=== PATIENT | female | born 1975 | race Hispanic/Latino ===

== ENCOUNTER 2017-07-30 00:37 | Observation (INO) | payer SELFPAY ==
[~2017-07-30] VITALS: Ht 160 cm; Wt 73.6 kg
[2017-07-30 01:20] LABS: ALBUMIN 4.7 g/dL (3.2-5.0); ALKALINE PHOSPHATASE 99 u/l (38-126); AMYLASE 103 u/l (30-110); ANION GAP 25 (6-22 (CALC)); BILIRUBIN, TOTAL 0.4 mg/dL (0.0-1.4); BUN 23 mg/dL (7-17); BUN/CREATININE RATIO 29 (12-20 (CALC)); CARBON DIOXIDE 19 mmol/l (22-30); CHLORIDE 104 mmol/l (95-108); CREATININE 0.8 mg/dL (0.5-1.0); GFR > 60 ML/MIN (>=60 (CALC)); GFR FOR AFR.AMER. > 60 ML/MIN (>=60 (CALC)); LIPASE 157 u/l (23-300); SGOT/AST 59 u/l (14-36); SGPT/ALT 59 u/l (9-52); SODIUM 144 mmol/l (137-146); TOTAL PROTEIN 8.7 g/dL (6.3-8.2)
--- NOTE | 2017-07-30 02:00 | NUR ---
RECOLLECT DRAWN FOR LAB. PT RESTING. MUCH CALMER.
--- NOTE | 2017-07-30 02:02 | NUR ---
FAMILY AT BEDSIDE
[2017-07-30 02:15] LABS: HEMATOCRIT 32.2 % (37.0-47.0); HEMOGLOBIN 9.7 g/dl (12.0-16.0); IMMATURE GRANULOCYTES 0.5 % (0.0-1.0); MEAN CELL VOLUME 65.1 fL CALC (80.0-100.0); MEAN CORPUSCULAR HGB 19.6 pG CALC (26.0-32.0); MEAN CORPUSCULAR HGB CONC 30.1 g/L CALC (32.0-36.0); NEUT# 15.51 thou/uL (2.00-7.15); RED BLOOD COUNT 4.95 mill/uL (4.20-5.60); RED CELL DISTRI WIDTH 20.5 % (11.5-15.5)
[2017-07-30 03:13] LABS: URINE BILIRUBIN - DIPSTICK NEGATIVE (NEGATIVE); URINE BLOOD DIPSTICK NEGATIVE (NEGATIVE); URINE COLOR YELLOW; URINE GLUCOSE - DIPSTICK NEGATIVE (NEGATIVE); URINE KETONE TRACE mg/dL (NEGATIVE); URINE LEUK ESTERASE NEGATIVE (NEGATIVE); URINE NITRITE - DIPSTICK NEGATIVE (Negative); URINE PH 7.5 (4.5-8.0); URINE PROTEIN - DIPSTICK NEGATIVE (NEG-TRACE); URINE SPECIFIC GRAVITY 1.015; URINE UROBILINOGEN - DIPSTICK 0.2 E.U./dL (0.2)
[2017-07-30 03:16] LABS: URINE CLARITY CLEAR
--- NOTE | 2017-07-30 03:27 | NUR ---
pt drinking powerade. tolerating.
[2017-07-30 04:35] LABS: HEMOGLOBIN 9.1 g/dl (12.0-16.0); IMMATURE GRANULOCYTES 0.5 % (0.0-1.0); MEAN CELL VOLUME 65.2 fL CALC (80.0-100.0); MEAN CORPUSCULAR HGB 19.8 pG CALC (26.0-32.0); MEAN CORPUSCULAR HGB CONC 30.3 g/L CALC (32.0-36.0); NEUT# 13.65 thou/uL (2.00-7.15); RED BLOOD COUNT 4.6 mill/uL (4.20-5.60); RED CELL DISTRI WIDTH 20.1 % (11.5-15.5)
[2017-07-30 05:41] LABS: ALKALINE PHOSPHATASE 73 u/l (38-126); ANION GAP 17 (6-22 (CALC)); BILIRUBIN, TOTAL 0.3 mg/dL (0.0-1.4); BUN 19 mg/dL (7-17); BUN/CREATININE RATIO 32 (12-20 (CALC)); CARBON DIOXIDE 22 mmol/l (22-30); CHLORIDE 109 mmol/l (95-108); CREATININE 0.6 mg/dL (0.5-1.0); GFR > 60 ML/MIN (>=60 (CALC)); GFR FOR AFR.AMER. > 60 ML/MIN (>=60 (CALC)); POTASSIUM 4.2 mmol/l (3.5-5.1); SGOT/AST 43 u/l (14-36); SGPT/ALT 53 u/l (9-52); SODIUM 144 mmol/l (137-146)
[2017-07-30 05:51] LABS: ALBUMIN 3.7 g/dL (3.2-5.0)
--- NOTE | 2017-07-30 06:00 | NUR ---
pt resting. YARITZA. BLOOD CULTURES X 1 DRAWN. RADIOLOGY HERE.
--- NOTE | 2017-07-30 06:43 | NUR ---
RETURNED FROM CT
--- NOTE | 2017-07-30 07:04 | NUR ---
PT UP TO BR. REPORT TO ONCOMING NURSE. NAD. VSS. PENDING ADMISSION.
--- NOTE | 2017-07-30 07:13 | NUR ---
RESTING QUIETLY, AWAITING CT RESULTS AND DISPOSITION, NO NEW CONCERNS VOICED, AT BEDSIDE.
--- NOTE | 2017-07-30 07:44 | NUR ---
Admission Note Report Given to: DAMON PEPPER Transported by: X Wheelchair Stretcher Transported with: X Nurse Transporter X [employer] IV [id number]
--- NOTE | 2017-07-30 07:58 | NUR ---
PT CAME FROM ER VIA WC BY EVGENY POP. BLADE CHANGER IN ROOM FOR STAND BY ASSIST TO SCALE THEN TO BED. ORINETED PT TO CALL LIGHT AND SAFETY PRECAUTIONS REINFORCED. CALL LIGHT IN REACH.
[2017-07-30 08:13] VITALS: BP 90/51
--- NOTE | 2017-07-30 10:50 | NUR ---
ASSESSMENT DONE. RESPS EVEN AND UNLABORED. # 20 RAC THAT APPEARS HEALTHY. PT DENIES PAIN AT THIS TIME. PT DENIES NEEDS AT THIS TIME. CALL LIGHT IN REACH.
--- NOTE | 2017-07-30 12:00 | NUR ---
PT IS RESTING IN BED WITH NO S/S OF DISTRESS NOTED. PT DENIES PAIN AT THIS TIME. FAMILY IN ROOM. CALL LIGHT IN REACH.
[2017-07-30 15:39] VITALS: BP 97/57
[2017-07-30 16:17] LABS: INFLUENZA A NONE DETECTED (NONE DETECT); INFLUENZA B NONE DETECTED (NONE DETECT)
--- NOTE | 2017-07-30 16:33 | NUR ---
Discharge instructions given. Patient verbalizes understanding of same. Discharged in stable condition via Wheelchair to Home with family. All belongings sent with pt.
== END 2017-07-30 16:32 | disposition home or self-care (01) | DRG 392 ==
LOC: ED 00:37 → ED-I 00:45 → ED 07:27 → MS2 07:28
PROVIDERS: Emergency Medicine; Hospitalist; ADMIT Internal Medicine; ATTEND Internal Medicine
DX: K52.9 Noninfective gastroenteritis and colitis, unspecified (principal); E87.3 Alkalosis; I95.9 Hypotension, unspecified
CPT/HCPCS: G0378; J1956; J2060; Q9967